=== PATIENT | male | born 1975 | race Caucasian/White ===

== ENCOUNTER 2016-11-09 16:49 | Emergency (ER) | payer SELFPAY ==
[2016-11-09 16:57] VITALS: TEMP 98.1
[2016-11-09] MEDS ORDERED: HYDROmorphONE/DILAUDID 1 MG/ML SYR IVP ONE (16:59)
[2016-11-09] MEDS ORDERED: ONDANSETRON 4 MG/2 ML VIAL IVP ONE (16:59)
[2016-11-09] MEDS ORDERED: NS 1,000 ML IV ONE (16:59)
[2016-11-09] MEDS ORDERED: PROPOFOL 200 MG/20 ML VIAL ONE (17:15)
--- NOTE | 2016-11-09 17:15 | EDPHY ---
H & P Stated Complaint: left shoulder dislocation Source: Patient, EMS Exam Limitations: No limitations - Personal History Current Tetanus Diphtheria and Acellular Pertussis (TDAP): Unsure - Medical/Surgical History Hx Asthma: No Hx Chronic Respiratory Disease: No Hx Diabetes: No Hx Cardiac Disease: No Hx Renal Disease: No Hx Cirrhosis: No Hx Alcoholism: No Hx HIV/AIDS: No Hx Splenectomy or Spleen Trauma: No Other PMH: knee surgeries - Social History Smoking Status: Never smoked HPI/ROS: CHIEF COMPLAINT: Fall, left shoulder dislocation HISTORY OF PRESENT ILLNESS: skiing earlier this afternoon when he fell, going end over end. He was wearing a helmet. Landed on the Left shoulder. HE attempted to spare the shoulder but ended up injuring the left shoulder dislocated. He has done this 3 times in the past. Most recently was in the late . NO head or neck injury. No loss of conscious. No chest, back , lower extremity or right upper extremity pain. There is no numbness or tingling of the left arm distal to the pain. Pain is severe but improving with the IV fentanyl and Valium he received EN route. Painful with any kind of movement. Improved with rest. Does not radiate.EMS reports no complications on route. Last intake by mouth was at once. Surgery on this was many years ago and [place]. He has no local orthopedist. No other associated complaints or modifying factors. REVIEW OF SYSTEMS: Ten systems reviewed and are negative unless otherwise noted in the HPI EXAMINATION: General Appearance: Alert, no distress Head: normocephalic, atraumatic . NO Noble signs or contusions. No raccoon eyes. No deformity. Eyes: Pupils equal and round, no conjunctival pallor or injection ENT, Mouth: Mucous membranes moist. Uvula midline. Neck: Normal inspection, supple, No midline tenderness. RAnge of motion is painless in all planes. Respiratory: Lungs are clear to auscultation . No wheezing, rhonchi, diminishment or retractions Cardiovascular: Regular rate and rhythm. Symmetric radial pulses distally and 2+ Gastrointestinal: Abdomen is soft and nontender. No tympany. No rigidity. Non- acute abdomen. Back: non-tender, no bony abnormalities Neurological: A&O, nonfocal, normal gait strength symmetric in all limbs Skin: Warm and dry, no rash. NO laceration, abrasions or contusions Extremities: significant tenderness palpation of the left shoulder. There is squaring of the shoulder joint. Neurovascular intact distally. RAnge of motion intact in the left hand, wrist and elbow. Psychiatric: Mood and affect normal DIFFERENTIAL DIAGNOSES: Including but not limited to Left shoulder dislocation, left shoulder dislocation with fracture, left clavicle fracture, left AC separation, left humerus fracture MDM: fall with left shoulder dislocation. PAtient is neurovascular intact and stable. We are obtaining all necessary tools to perform a sedation and reduction. 5:45 p.m. left shoulder reduction without any neurovascular compromise distally. We have successfully reduced the shoulder by feel. We are waiting further confirmatory x-ray at this time. He tolerated the procedure well without any desaturations or complications. 6:30 p.m. radiologist has read the x-ray film as successful reduction with a Hill-Sachs deformity. This may be chronic given his multiple dislocations and I did inform this. He is going to follow up with his orthopedist back in [place]. We have provided this for him, and I will also provide orthopedics follow-up here for him. He is discharged home in stable condition, with sling and swath, and neurovascularly intact Procedure: Left shoulder closed reduction After appropriate procedure sedation administered by Dr. Sommers, the left shoulder was reduced using traction counter traction. It did take several minutes of traction and counter-traction but there was a good reduction. He is neurovascular intact post procedure with 2+ radial pulse. He was placed in a sling and swath while still under conscious sedation. We have ordered the confirmatory x-ray and is pending at this time. SUPERVISION: Shared visit. Please see attending physician documentation for further information (Giovani Mata) Constitutional: Initial Vital Signs Temperature (C) 98.1 F 11/09/16 16:49 Heart Rate 66 11/09/16 16:49 Respiratory Rate 18 11/09/16 16:49 Blood Pressure 126/84 H 11/09/16 16:49 O2 Sat (%) 93 11/09/16 16:49 O2 Delivery Mode [Post Non-Rebreather Mask Procedure 3rd] O2 Delivery Mode [Post Non-Rebreather Mask Procedure 2nd] O2 Delivery Mode [Post Non-Rebreather Mask Procedure 1st] O2 Delivery Mode [Procedural Non-Rebreather Mask 2nd] O2 Delivery Mode [Procedural Non-Rebreather Mask 1st] O2 Delivery Mode [.Immediate Non-Rebreather Mask Pre-Procedure] O2 Delivery Mode Room Air O2 (L/minute) [Post Procedure 15 3rd] O2 (L/minute) [Post Procedure 15 2nd] O2 (L/minute) [Post Procedure 15 1st] O2 (L/minute) [Procedural 2nd] 15 O2 (L/minute) [Procedural 1st] 15 O2 (L/minute) [.Immediate Pre- 15 Procedure] Allergies/Adverse Reactions: No Known Allergies Allergy (Unverified 11/09/16 16:56) Home Medications: Medication Instructions Recorded Cyclobenzaprine [Flexeril 10 MG 10 mg PO TID PRN #15 tab 11/09/16 (*)] oxyCODONE HCL/ACETAMINOPHEN 1 each PO Q4-6PRN PRN #20 tablet 11/09/16 [Percocet 5-325 mg Tablet] Medical Decision Making ED Course/Re-evaluation: I also saw the patient and reviewed the history of skiing today and fall. He has had previous shoulder dislocations. Exam shows obvious anterior shoulder dislocation with distal motor vascular sensitivity to be intact Procedure: Conscious sedation. Indication: Shoulder dislocation I was asked by CULLEN Mata to perform sedation. The patient is an appropriate candidate to tolerate procedural sedation. The patient's vital signs and mental status are appropriate. The risks, benefits and alternatives of the sedation were discussed with the patient. The patient is ASA classification 1. The patient's Mallampati airway score was 1 and the patient did meet the 3-3-2 airway measurements. A time out was completed. The patient was sedated with propofol 130 mg. The patient was monitored with continuous pulse oximetry, monitor technician and end tidal CO2. There were no complications and no significant hypoxemia. I performed sedation. The total time I spent at the bedside during the procedural sedation was 15 minutes. The patient was examined after the procedural sedation and has returned to their pre-sedation baseline with normal vital signs and a normal examination. (Dilan Sommers) - Data Points Medications Given: Discontinued Medications Hydromorphone HCl (Dilaudid) 1 mg IVP EDNOW ONE Stop: 11/09/16 17:00 Last Admin: 11/09/16 17:09 Dose: 1 mg Sodium Chloride (Ns) 1,000 mls @ 0 mls/hr IV ONCE ONE PRN Reason: Wide Open Stop: 02/07/17 17:00 Last Admin: 11/09/16 17:09 Dose: 1,000 mls Ondansetron HCl (Zofran) 4 mg IVP EDNOW ONE Stop: 11/09/16 17:00 Last Admin: 11/09/16 17:09 Dose: 4 mg Propofol (Diprivan) 130 mg IVP EDNOW ONE Stop: 11/09/16 18:02 Last Admin: 11/09/16 18:01 Dose: 130 mg Departure - Departure Disposition: Home, Routine, Self-Care Clinical Impression: Recurrent dislocation, left shoulder Condition: Good Instructions: Shoulder Dislocation (ED) Additional Instructions: follow-up with orthopedist for definitive care. Nonweightbearing on the left shoulder until follow-up with them given the Hill-Sachs deformity. Return to the ER for any numbness, tingling or recurrent dislocation Referrals: [place] STATE,. [Unknown] - As per Instructions Jacob Aguillon MD [Medical Doctor] - As per Instructions Prescriptions: Cyclobenzaprine [Flexeril 10 MG (*)] 10 mg PO TID PRN #15 tab PRN Reason: Spasms oxyCODONE HCL/ACETAMINOPHEN [Percocet 5-325 mg Tablet] 1 each PO Q4-6PRN PRN # 20 tablet PRN Reason: Pain, Moderate
--- NOTE | 2016-11-09 17:35 | DX ---
Left shoulder - 2 views 17:13 Indication: Fall. Comparison: None Findings: The humeral head is dislocated anteriorly and resides in the subcoracoid location. The acro mioclavicular and coracoclavicular intervals are within normal limit. No discernible fracture. Lungs are hypoventilated. Impression: 1. Anterior left shoulder dislocation. 2. No fracture or evidence of AC separation.
[2016-11-09] MEDS ORDERED: PROPOFOL 200 MG/20 ML VIAL IVP ONE (18:01)
--- NOTE | 2016-11-09 18:14 | DX ---
Left shoulder - 2 views 17:56 Indication: Post reduction Comparison: Left shoulder from less than one hour prior. Findings: The humeral head has been reduced into anatomic alignment. An impaction deformity is presen t along the lateral aspect of the humeral head consistent with a Hill-Sachs deformity. No discernible fracture fragment off the glenoid. Impression: Good shoulder reduction. Hill-Sachs deformity.
[2016-11-09 19:36] VITALS: BP 142/92; PULSE 67; RESP 14; O2SAT 91
== END 2016-11-09 19:34 | disposition home or self-care (01) ==
PROC: 0RSKXZZ Reposition Left Shoulder Joint, External Approach (ICD-10-PCS; principal; 2016-11-09)
DX: M24.412 Recurrent dislocation, left shoulder (principal); W19.XXXA Unspecified fall, initial encounter
CPT/HCPCS: 96374; J1170; J2405; J2704